=== PATIENT | female | born 1995 | race Two or more races ===

== ENCOUNTER 2025-11-16 14:56 | Inpatient (IN) | payer MEDICAID, SELFPAY ==
--- NOTE | 2025-11-10 11:47 | ESHP_ITS ---
RE: WINSTON BECKWITH : 1995 DATE OF ADMISSION: 11/16/25 HISTORY OF PRESENT ILLNESS: This is a 30-year-old 4, para 1-0-2-1, with due date of 11/19 with intrauterine at 39 weeks and 4 day on 11/16, who requests induction of labor due to aches and pains of . She denies any leaking or bleeding. She reports normal movement. She has occasional contractions. Her urine drug screen at her first visit on 05/20 was positive for cocaine. Her subsequent urine drug screens on every visit were negative for substance use. The patient conceived within 3 months of her prior delivery. 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 She was asymptomatic. A chest x-ray was ordered and was not performed. Her was also complicated by iron deficiency anemia. ALLERGIES: NO KNOWN DRUG ALLERGIES. MEDICATIONS: 1. multivitamin 1 p.o. daily. 2. Ferrous sulfate 325 mg 1 p.o. daily. PAST MEDICAL HISTORY: Short intrauterine interval. 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 Iron deficiency anemia. SOCIAL HISTORY: Her urine drug screen was positive for cocaine in the first trimester. Her subsequent urine drug screens throughout her at each visit were negative for substance use. PAST SURGICAL HISTORY: Denies. OBSTETRICAL HISTORY: 1. 08/2022, 8-week spontaneous , no D and C. 2. 12/2022, 5-week spontaneous , no D and C. 3. 10/20/2024, 39-week normal vaginal delivery, 7 pound 4 ounce male, vacuum- assisted vaginal delivery complicated by oligohydramnios. REVIEW OF SYSTEMS: She denies any chest pain, palpitations, cough, fever, shortness of breath, or lower extremity pain. She denies any flank pain. She denies any headache, change of vision, or right upper quadrant pain. PHYSICAL EXAMINATION: VITAL SIGNS: Blood pressure 129/70. Heart rate 88. Respirations 18. Temperature is 98.2. Weight 207 pounds. HEENT: Oropharynx and sclerae clear. LUNGS: Clear to auscultation bilaterally. HEART: Regular rate and rhythm. ABDOMEN: Gravid, term size, consistent with estimated weight 7.5 lbs PELVIC: See RN notes SKIN: No gross rashes or lesions EXT: Nontender NEURO: No deficits ASSESMENT: IUP 39w4d by best dates. Induction for Aches and Pains of at Term at patients request. PLAN: Induction of labor. Anticipate spontaneous vaginal delivery. Informed consent was obtained. The patient is made aware of the risks, complications, alternatives, and benefits of operative vaginal delivery and delivery and agrees with these modes of delivery if indicated. Due to positive QuantiFERON TB Gold test without symptoms, the patient will need a chest x-ray . DT: 11:28:59 TT: 11:47:00 Ref: [id number] - TID: [id number] MTDD
--- NOTE | 2025-11-15 07:43 | PC.NURSE ---
PT CALLED, ASKED FOR BED AVAILABILITY FOR IOL, INFORMED OF NO BEDS AVAILABLE AT THIS TIME, EDUCATED ON KICK COUNT AND LABOR PRECAUTIONS, WILL CALL ONCE BED BECOMES AVAILABLE, ASKED TO CALL BACK AT 1700, PT VERBALIZED UNDERSTANDING
--- NOTE | 2025-11-15 17:01 | PC.NURSE ---
PT CALLED, ASKED FOR BED FOR IOL, INFORMED OF NO BEDS AVAILABLE, EDUCATED ON CALLING BACK TOMORROW AT 0730, PT VERBALIZED UNDERSTANDING
[2025-11-16] VITALS (9 sets, daily range): BP systolic 107–130; BP diastolic 61–81; PULSE 85–93; RESP 17–18; TEMP 36.8–36.9; BMI 38.6
--- NOTE | 2025-11-16 07:38 | PC.NURSE ---
PT ON PHONE, ASKED FOR BED FOR IOL, INFORMED OF NO BED AVAILABLE AT THIS TIME, WILL CALL ONCE BED BECOMES AVAILABLE, EDUCATED ON KICK COUNT AND LABOR PRECAUTIONS, PT VERBALIZED UNDERSTANDING
--- NOTE | 2025-11-16 13:07 | PC.NURSE ---
CALLED PT, ASKED PT TO BE HERE BY 1430
--- NOTE | 2025-11-16 15:35 | XR_ITS ---
Study: Obstetric ultrasound of equal to or greater than 14 weeks. INDICATION: IOL 39 weeks 4 days. No complaints TECHNIQUE: Grayscale ultrasound with color flow Doppler. 48 images at 1604 hours 16 November 2025. FINDINGS: There is a desir intrauterine fetus in cephalic presentation with the spine to the maternal left side. The four-chamber heart beats at 145/min. The placental grade is 2; the location is fundal. The umbilical cord insertion was visualized. The amniotic fluid index measured 11.0 cm. The stomach, kidneys, bladder and spine were visualized. Bilateral hydronephrosis is noted. The cervix length is 3.2 cm. The ovaries are obscured by bowel gas. The estimated weight of 3595.5 g +/-5.32 g corresponds with 7 pounds 14.8 ounces +/-19 ounces. IMPRESSION: Ultrasound gestational age of 38 weeks 6 days composite with an estimated due date of November 24, 2024.
[2025-11-16 15:44] LABS: Basophils # (Auto) 0.0 Thou/mm3 (0.0-0.2); Basophils % (Auto) 0 % (0-2.5); Eosinophils # (Auto) 0.1 Thou/mm3 (0.0-0.5); Eosinophils % (Auto) 1 % (0-10); Hematocrit 35.1 % (36.0-46.0); Hemoglobin 11.6 g/dL (12.0-16.0); Immature Granulocytes Auto 0.05 Thou/mm3 (0.00-0.00); Lymphocytes # (Auto) 1.5 Thou/mm3 (1.0-4.8); Lymphocytes % (Auto) 20 % (10-50); Mean Corpuscular HGB Conc 33.0 g/dl (31.0-37.0); Mean Corpuscular Hemoglobin 28.2 pg (25.0-35.0); Mean Corpuscular Volume 85 fL (80-100); Monocytes # (Auto) 0.5 Thou/mm3 (0.0-0.8); Monocytes % (Auto) 6 % (0-12); Neutrophils # (Auto) 5.5 Thou/mm3 (1.8-7.7); Neutrophils % (Auto) 72 % (37-80); Nucleated Red Blood Cell # 0.00 Thou/mm3 (0.00-0.00); Nucleated Red Blood Cell % 0 /100 WBC (0); Platelet Count 204 Thou/mm3 (140-440); RDW Standard Deviation 43.0 fL (36.4-46.3); Red Blood Count 4.11 Miln/mm3 (4.00-5.20); White Blood Count 7.6 Thou/mm3 (3.6-11.0)
[2025-11-16 16:23] LABS: Syphilis Nonreactive (Nonreactive)
--- NOTE | 2025-11-16 16:41 | PD.ADDHP ---
Addendum History & Physical Addendum Date of report being addended: 11/16/25 Narrative: No change in history and physical.
[2025-11-16 19:00] LABS: Amphetamine/Metham Scrn,Ur OB Negative (Negative); Benzoylecgonine Screen, Ur OB Negative (Negative); Opiate Screen,Urine OB Negative (Negative); THC Screen,Urine OB Negative (Negative)
[2025-11-16] MEDS: RINGERS LACTATED 1000 ML 1,000 ML 100 ML IV (23:35)
[2025-11-17] VITALS (134 sets, daily range): BP systolic 91–156; BP diastolic 55–105; PULSE 71–136; RESP 15–20; TEMP 36.6–36.8; O2SAT 91–100
--- NOTE | 2025-11-17 07:43 | PD.LDPN ---
Documentation for date of: 11/17/25 OB Labor Progress Note Pelvic Exam Dilation (cm): 1 Effacement (%): Thick station: -4 Amniotic membrane status: Intact Contractions Monitor mode: External Contraction frequency: 1.5-4 Contraction intensity: Mild Status status: Category l Assessment and Plan Comments: Induction of labor on-going Anticipate History of Present Illness HPI No problems or complaint
[2025-11-17] MEDS: OXYTOCIN in NS 30 units 30 UNIT/500 ML BAG IV (12:35)
[2025-11-17] MEDS: RINGERS LACTATED 1000 ML 1,000 ML 100 ML IV (12:36)
[2025-11-17] MEDS: OXYTOCIN INJ 10 UNIT/ML VIAL IM (16:06)
[2025-11-17] MEDS: OXYTOCIN in NS 20 units 20 UNIT/1,000 ML BAG 125 UNIT IV (16:07)
[2025-11-17] MEDS: METHYLERGONOVINE INJ 0.2 MG/ML VIAL IM (16:17)
[2025-11-17] MEDS: BENZO/LANO/ALOE (Dermoplast) 60 GM CAN 1 SPRAY TOP (16:19)
[2025-11-17] MEDS: IBUPROFEN TAB 400 MG TABLET 800 MG PO (16:52)
--- NOTE | 2025-11-17 17:28 | PD.LDDS ---
DS: Providers Provider Date of admission: 11/16/25 14:56 Primary care physician: Channing Chen MD Admitting Provider: James Marvin MD Attending Provider on Admission: James Marvin MD Attending Provider on DC: James Marvin MD Discharging Provider: James Marvin MD DS: Diagnosis Problem List Completed Was Problem List Reviewed/Reconciled?: Yes Summary/Hosp Course Brief History: No problems or complaint Peripartum Data Delivery Method: Normal Vaginal Delivery Episiotomy Description: None Time Spent with Patient Time attestation: Total time spent providing and/or coordinating discharge services: Exam Vital Signs Temp Pulse Resp BP Pulse Ox O2 Del Method 98.1 F 94 18 119/76 97 Room Air 11/17/25 16:41 11/17/25 17:23 11/17/25 16:41 11/17/25 17:23 11/17/25 16:09 11/17/25 16:41 Discharge Plan Plan Patient Disposition: HOME (Self Care) Patient condition on transfer: Stable Prescriptions/Referrals Prescriptions/Med Rec: New ibuprofen 600 mg tablet 600 mg PO Q6H PRN (Reason: pain) Qty: 30 0RF Continued ferrous sulfate 325 mg (65 mg iron) tablet Patient Comments: TAKE 1 TABLET BY MOUTH EVERY OTHER DAY Classic 28 mg iron- 800 mcg tablet Patient Comments: TAKE 1 TABLET BY MOUTH EVERY DAY Discontinued Vitamin Tablet 1 tab PO QDAY Referrals: Channing Chen MD [Primary Care Provider, Family Practice] Patient/Caregiver Discharge Instructions Discharge Activity: activity as tolerated Other Discharge Activity Instructions:: Follow up office 6 weeks Print Language: [place] Stand Alone Forms: Estelle Award Info., Patient Portal Info Letter Discharge Order Discharge Orders: Discharge (Routine); Ordered 11/18/25 Ordered By: James Marvin Planned Discharge Date 11/18/25
[2025-11-17] MEDS: ONDANSETRON INJ 2 MG/ML INJ 2 ML 4 MG IVP (17:29)
--- NOTE | 2025-11-17 17:29 | OBDSUM_ITS ---
Data (Jack) Data : 4 Delivery Data (Jack) Labor Data Initiation of labor: Induction Induction/Augmentation Agent: Cervidil and Pitocin ROM date: 11/17/25 ROM time: 10:35 Amniotic membrane rupture type: Spontaneous Amniotic fluid description: Clear Delivery Data EDC: 11/19/25 EDC calculated by:: LMP/early US confirmation Onset of labor date: 11/17/25 Onset of labor time: 10:35 Complete dilation date: 11/17/25 Complete dilation time: 15:39 delivery date: 11/17/25 delivery time: 16:01 Gestational age (weeks): 39 Gestational age (days): 5 Placenta delivery date: 11/17/25 Placenta delivery time: 16:14 Stage 1 total time: Labor - Stage 1 Duration 5 hours and 4 minutes Delivered by: Yon Delivery nurse: Clifford Rincon nurse: Bria Clinical Rehabilitation Aide at delivery: No Support person(s) at delivery: FOB, Grandmother of baby Delivery Method Delivery method: Normal Vaginal Delivery Presentation: Vertex position: OA Anesthesia Type Anesthesia Type: Epidural Placenta Placenta delivery description: Spontaneous Placenta Disposition: Sent to Pathology (true knot in umbilical cord) Cord blood sent to lab: Yes cord blood collection: Cord Blood Type Episiotomy Episiotomy description: None Perineal repair Sutures used for repair: other (2-0 chromic ) EBL Estimated blood loss (ml): 250 Umbilical Cord cord description: 3 Vessels and True Knot Complications Complications: None [place] Data (Jack) Data order: 1 's gender: Male Identification band number: [id number] weight (gms): 7 lb 5.462 oz Weight (pounds): 7 lbs and 5.5 ozs length: 19.69 in 1 minute: 8 5 minutes: 9
[2025-11-17 23:10] LABS: Basophils # (Auto) 0.0 Thou/mm3 (0.0-0.2); Basophils % (Auto) 0 % (0-2.5); Eosinophils # (Auto) 0.0 Thou/mm3 (0.0-0.5); Eosinophils % (Auto) 0 % (0-10); Hematocrit 31.5 % (36.0-46.0); Hemoglobin 10.7 g/dL (12.0-16.0); Immature Granulocytes Auto 0.06 Thou/mm3 (0.00-0.00); Lymphocytes # (Auto) 1.7 Thou/mm3 (1.0-4.8); Lymphocytes % (Auto) 13 % (10-50); Mean Corpuscular HGB Conc 34.0 g/dl (31.0-37.0); Mean Corpuscular Hemoglobin 29.2 pg (25.0-35.0); Mean Corpuscular Volume 86 fL (80-100); Monocytes # (Auto) 0.9 Thou/mm3 (0.0-0.8); Monocytes % (Auto) 7 % (0-12); Neutrophils # (Auto) 10.0 Thou/mm3 (1.8-7.7); Neutrophils % (Auto) 78 % (37-80); Nucleated Red Blood Cell # 0.00 Thou/mm3 (0.00-0.00); Nucleated Red Blood Cell % 0 /100 WBC (0); Platelet Count 158 Thou/mm3 (140-440); RDW Standard Deviation 43.8 fL (36.4-46.3); Red Blood Count 3.66 Miln/mm3 (4.00-5.20); White Blood Count 12.7 Thou/mm3 (3.6-11.0)
[2025-11-18 04:38] VITALS: BP 96/63; PULSE 77; RESP 20; TEMP 36.6; O2SAT 96
--- NOTE | 2025-11-18 06:22 | PC.NURSE ---
0450 11/18/25 Pt vaginal packing was removed.Complete intact stripe of gauze was removed. Pt tolerated well.
--- NOTE | 2025-11-18 07:39 | ESPR_ITS ---
RE: WINSTON BECKWITH : 1995 DATE OF SERVICE: 11/18/2025 S: day #1. Patient denies any problem or complaints. She is voiding, she is ambulating, she is tolerating diet, and she is passing flatus. She denies any excessive vaginal bleeding. She denies any dizziness or lightheadedness. She denies any chest pain, palpitations, shortness of breath, or lower extremity pain. O: Vital Signs: Blood pressure 96/63, heart rate 77, respiration 20, temperature is 97.9. Pulse ox is 96% on room air. Lungs: Clear to auscultation bilaterally. Heart: Regular rate and rhythm. Abdomen: Fundus is firm. Extremities: Nontender. LABORATORY DATA: Hemoglobin pre-delivery is 11.6, post-delivery is 10.7. ASSESSMENT: day #1 status post spontaneous vaginal delivery. P: Vaginal gauze removed, no significant vaginal bleeding. Plan discharge home when baby is cleared. Discharge instructions given. Follow up in the office in 6 weeks. DT: 07:20:48 TT: 07:38:00 Ref: [id number] - TID: [id number]
[2025-11-18] MEDS: IBUPROFEN TAB 400 MG TABLET 800 MG PO (08:16)
[2025-11-18 08:27] VITALS: BP 121/86; PULSE 75; RESP 18; TEMP 36.6; O2SAT 97
--- NOTE | 2025-11-18 09:08 | PC.CC ---
Priscilla VEGA conducted bedside contact with the patient to address nursing referral indicating patient possessed a history of cocaine use, in first trimester. Priscilla VEGA introduced self and role.? At bedside with patient was Leland BENTLEY.? Patient reports she was at a gathering and reports she was not aware of how she consumed the substance. Patient resides with [facility]. New born is the second child, first child, male is [age] year old. delivered via . Patient plans on breast-feeding and bottle-feeding the infant. Patient reports participating with care within appropriate period of confirmation. Dr. Marvin provided OB services. Patient reports consistency with OB appointments. Patient denies HX of Mental health.? Patient is receiving WIC, TANF and [facility] aid. Patient denies history of alcohol/drug abuse.? Patient denies episodes of domestic violence.?Patient has access to appropriate supplies and equipment.?[facility] will provide transportation upon discharge. ?Patient describes possessing support system consisting of FOB and family. BI DEVELOPER provided community resources to include [employer] and [facility]. No further intervention required at this time, child protective services social worker would be available to address any further concerns.? BI DEVELOPER updated bedside nurse.?
[2025-11-18 11:25] VITALS: BP 112/74; PULSE 72; RESP 17; TEMP 36.5; O2SAT 97
[2025-11-18 15:50] VITALS: BP 110/72; PULSE 78; RESP 16; TEMP 36.5; O2SAT 97
== END 2025-11-18 16:55 | disposition home or self-care (01) | DRG 560 ==
LOC: S4SX 11-17 17:27 → S4NX 11-17 19:13
PROVIDERS: Admitting Provider Specialist; PCP Family Medicine; Visit Provider Specialist
DX: O69.2XX0 Labor and delivery complicated by other cord entanglement, with compression, not applicable or unspecified (principal); O99.02 Anemia complicating childbirth; Z3A.39 39 weeks gestation of pregnancy; D50.9 Iron deficiency anemia, unspecified; Z37.0 Single live birth
CPT/HCPCS: 36415; 59409; 76805; 80307; 85025; 86780; 86850; 86900; 86901; 94762; J2210; J2405; J2590; J2795; J3010; J7120; S0191; A9270